=== PATIENT | female | born 1960 | race Caucasian/White ===

== ENCOUNTER 2025-01-21 18:49 | Emergency (ER) | payer OTHER, SELFPAY ==
--- NOTE | ~2025-01-21 | XR_ITS ---
XR shoulder LT min 2V Ordering provider: Maggie Stokes MD History: . FALL . Comparison: None. FINDINGS: BONES: Undisplaced Fracture of the proximal metaphysis of the left humerus. JOINT SPACES: The acromioclavicular joint shows slight osteoarthritic change. The glenohumeral joint is narrowed. SOFT TISSUES: Normal. IMPRESSION: Fracture of the proximal metaphysis of the left humerus. Reviewed, dictated and finalized at location A.
--- NOTE | ~2025-01-21 | XR_ITS ---
XR humerus LT Ordering provider: Maggie Stokes MD History: . FALL . Comparison: None. FINDINGS: BONES: Fracture of the proximal metaphysis of the left humerus with extension to the humeral head. JOINT SPACES: Severe narrowing of the glenohumeral joint space. SOFT TISSUES: Normal. IMPRESSION: Fracture of the proximal metaphysis of the left humerus with extension to the humeral head. Reviewed, dictated and finalized at location A. IMPRESSION: Fracture of the proximal metaphysis of the left humerus with extension to the h umeral head.
[2025-01-21 18:50] VITALS: BP 113/63; PULSE 89; RESP 16; TEMP 36.8; O2SAT 97
--- OUTSIDE RECORDS SUMMARY | 2025-01-21 18:51 | XMS_ITS | Referral Summary ---
Author Organization [place] [id number] Address [address] [place] [address] Care Team Providers Care Ash Pit Worker Name Role Phone Torrey Serna MD Primary Care Provider [phone] Encounters Date Type Department Care Team Description 12/28/2024 Results Follow-Up [facility] [address] [place] [address] Sharon Stewart NP Screening Mammogram Bilateral W Rico W Implants 12/27/2024 1:26 PM CDT - 12/27/2024 11:59 PM CDT Hospital Encounter [place] [facility] [facility] [address] [place] [phone] Encounter for osteoporosis screening in asymptomatic postmenopausal patient Discharge Disposition: Discharge to home or self care 12/27/2024 1:26 PM CDT - 12/27/2024 11:59 PM CDT Hospital Encounter [place] [facility] [address] [place] [address] [address] [place], [place] [phone] Encounter for screening mammogram for malignant neoplasm of breast Discharge Disposition: Discharge to home or self care 11/26/2024 Telephone [facility] G[facility]ology [address] [place] [address] 12[address] [place] [address] [place] [phone] Cathy Prather 11/24/2024 Telephone [facility] [address] [place] [address] Brisa Lehman RN 11/23/2024 Results Follow-Up [facility] [address] [place] [phone] Sharon Stewart NP Hepatitis C antibody Blood, Urinalysis reflex to microscopic and culture Urine, Thyroid Function [place], Additional followed-up results: 5 11/23/2024 10:05 AM CDT Lab [facility] [address] [place] [phone] Routine general medical examination at a health care facility; Need for hepatitis B screening test; Encounter for hepatitis C screening test for low risk patient; Anxiety 11/23/2024 8:30 AM CDT Office Visit [facility] [address] [place] [phone] Sharon Stewart NP Routine general medical examination at a health care facility (Primary Dx); Screening for lipid disorders; Colon cancer screening; Encounter for screening mammogram for malignant neoplasm of breast; Anxiety; Need for hepatitis B screening test; Encounter for hepatitis C screening test for low risk patient; Encounter for osteoporosis screening in asymptomatic postmenopausal patient from Last 3 Months Allergies No known active allergies Medications PARoxetine (PAXIL) 30 mg tablet Take 1 tablet (30 mg total) by mouth every morning 90 tablet 3 11/23/2024 6 Active Active Problems Problem Noted Date Diagnosed Date Colon cancer screening 11/23/2024 Posterior vitreous detachment of right eye 02/08 Assessment & Plan (03/23/2024 3:06 PM CDT): No retinal break/tear S/sx retinal detachment (RD) reviewed, rtc with any new fl/floaters Assessment & Plan (02/09/2024 9:42 AM CDT): Patient was educated on the signs/sx retinal detachment, including flashes, floaters, and/or curtain over the vision. Recommend patient RTC immediately with the onset of any of these symptoms. 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 Assessment & Plan (02/09/2024 9:47 AM CDT): Not v/s, monitor Arthralgia of shoulder 04/30/2012 Immunizations Immunization Administration Dates Next Due [facility] ([facility]) SARS-CoV-2 Vaccination 09/26/2020 Social History Tobacco Use Types Packs/Day Years Used Date Smoking Tobacco: Never Tobacco Cessation:Counseling Given: Not Answered Comments Unknown Sex and Gender Information Value Date Recorded Sex Assigned at Not on file Legal Sex 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 Gender Identity Not on file Sexual Orientation Not on file Last Filed Vital Signs Vital Sign Reading Time Taken Comments Blood Pressure 120/70 11/23/2024 8:23 AM CDT Pulse 77 11/23/2024 8:23 AM CDT Temperature 36.8 C (98.2 F) 01/22/2023 9:24 AM CDT Respiratory Rate 18 01/22/2023 9:24 AM CDT Oxygen Saturation 99% 11/23/2024 8:23 AM CDT Inhaled Oxygen Concentration - - Weight 59 kg (130 lb) 12/27/2024 1:46 PM CDT Height 160 cm (5' 3) 12/27/2024 1:46 PM CDT Body Mass Index 23.03 12/27/2024 1:46 PM CDT Plan of Treatment Scheduled Procedures Name Priority Associated Diagnoses Date/Ti me COLONOSCOPY Open Access Colon cancer screening Procedures Procedure Name Priority Date/Time Associated Diagnosis Comments DEXA AXIAL SKELETON BONE DENSITY 1 OR MORE SITES Schedule Routine, Read Routine (OP Routine) 12/27/2024 2:15 PM CDT Encounter for osteoporosis screening in asymptomatic postmenopausal patient SCREENING MAMMOGRAM BILATERAL W RICO W IMPLANTS Schedule Routine, Read Routine (OP Routine) 12/27/2024 2:01 PM CDT Encounter for screening mammogram for malignant neoplasm of breast EGFR Routine 11/23/2024 10:04 AM CDT Routine general medical examination at a health care facility Anxiety DIFFERENTIAL AUTO Routine 11/23/2024 10:04 AM CDT Routine general medical examination at a health care facility Anxiety CBC WITH AUTO DIFFERENTIAL Routine 11/23/2024 10:04 AM CDT Routine general medical examination at a health care facility Anxiety COMPREHENSIVE METABOLIC PANEL Routine 11/23/2024 10:04 AM CDT Routine general medical examination at a health care facility Anxiety THYROID FUNCTION CASCADE Routine 11/23/2024 10:04 AM CDT Routine general medical examination at a health care facility Anxiety URINALYSIS AND REFLEX TO MICROSCOPIC AND CULTURE Routine 11/23/2024 10:04 AM CDT Routine general medical examination at a health care facility Anxiety HEPATITIS C ANTIBODY Routine 11/23/2024 10:04 AM CDT Routine general medical examination at a health care facility Encounter for hepatitis C screening test for low risk patient POCT LIPID PANEL Routine 11/23/2024 8:32 AM CDT Screening for lipid disorders POCT GLUCOSE [id number] Routine 11/23/2024 8: 32 AM CDT Screening for lipid disorders COLONOSCOPY REPORT 08/19/2014 from Last 3 Months or Most Recently Relevant to Health Maintenance Results * Dexa Axial Skeleton Bone Density 1 or 2 Site (12/27/2024 2:15 PM CDT) Anatomical Region Laterality Modality Body N/A Digital Radiogra phy 12/27/2024 3:06 PM CDT Impressions 12/27/2024 4:09 PM CDT 1. The bone mineral density of the lumbar spine is mildly decreased. 2. The bone mineral density of the left femoral neck is moderately decreased. 3. The bone mineral density of the left total hip is mildly decreased. 4. Overall, the above findings are diagnostic of osteoporosis by WHO criteria. 5. Based on the FRAX fracture risk model, the 10-year probability for major osteoporotic fracture is 12% and that for hip fracture is 2.3%. This 10-year fracture risk estimate was calculated using the risk factors noted in the history above, along with the femoral neck bone density. FRAX is intended to help guide treatment decisions in men over age 50 and postmenopausal women with low bone mass (osteopenia). The National Osteoporosis Foundation (NOF) recommends that FDA-approved medical therapies be considered in postmenopausal women and men age 50 years and older with osteoporosis and those with low bone mass whose 10-year fracture probability by FRAX is >= 20% for major osteoporotic fracture or >= 3% for hip fracture. However, all treatment decisions require clinical judgment and consideration of individual patient factors, including patient preferences, comorbidities, previous drug use, risk factors not captured in the FRAX model (e.g., frailty, falls, vitamin D deficiency, increased bone turnover, interval significant decline in bone density) and possible under- or overestimation of fracture risk by FRAX. General comments regarding interpretation of bone density measurements: A) In children, premenopausal woman and males under age 50 not at increased risk for fractures only Z-scores, not T-scores are used to indicate risk. A Z-score above -2.0 is defined as within the expected range for age and Z-score at or less than -2.0 is below the expected range for age. A Z-score below the expected range for age in a patient with recent fractures and/or chronic corticosteroid treatment is consistent with a diagnosis of osteoporosis. B) In post menopausal women and males over 50, comparison of the measured bone mineral density with the average value in young normal subjects (the T-score) has been found to be useful in assessing fracture risk. Fracture risk approximately doubles for each 1.0 standard deviation (SD) in individual's hip or spine bone mineral density is below the average value of young normal subjects. The World Health Organization (WHO) has defined T-scores of -1.0 to -2.5 as diagnostic of low bone mass (OSTEOPENIA), and T-scores of -2.5 or lower to be diagnostic of OSTEOPOROSIS, based on the site of lowest bone density. Note that there will be a change in reporting format and reference databases as patients move from the younger population (group A) to the older population (group B) The National Osteoporosis Foundation (www.nof.org) recommends adequate intake of calcium and vitamin D and regular weight-bearing exercise in all patients. They recommend pharmacologic treatment in postmenopausal women and men age 50 and older presenting with any of the followin) Osteoporosis, after appropriate evaluation to exclude secondary causes. 2) A hip or vertebral (clinical or radiographic) fracture, regardless of the bone density. 3) Low bone mass (Osteopenia) and one or more of: other prior fractures, secondary causes associated with high risk of fracture (such as glucocorticoid use or total immobilization), or computed high risk of fracture (10-yr probability of hip fracture >= 3% or a 10-yr probability of any major osteoporosis-related fracture >= 20% based on the [place].-adapted WHO algorithm), available at http://www.shef.ac.uk/FRAX). Dictated by: Yue Corey MD, MPH The radiology attending physician has personally reviewed this study, and had reviewed and/or edited this written report and agrees with it. Electronically signed by: Wolfgang Peace M.D. Narrative 12/27/2024 4:09 PM CDT BONE DENSITOMETRY OF THE SPINE AND HIP DATE OF STUDY: 12/27/2024 HISTORY: 64-year-old postmenopausal woman with no relevant past medical history. She is being treated with no relevant medications. Evaluate bone mineral density. Additional risk factors for fracture: none. FINDINGS (SPINE): The bone mineral density of L1-L4 was assessed by dual-energy x-ray absorptiometry. The average bone mineral density within this region is 0.892 gm/sq-cm. This is 0.3 standard deviations above the mean of the average bone mineral density for age- and gender-matched subjects (the Z-score). It is 1.4 standard deviations below the mean peak bone mineral density in young adults (the T-score). FINDINGS (FEMORAL NECK): The bone mineral density of the left femoral neck was assessed by dual-energy x-ray absorptiometry. The average bone mineral density within the femoral neck region is 0.574 gm/sq-cm. This is 1.0 standard deviations below the mean of the average bone mineral density for age- and gender-matched subjects (the Z-score). It is 2.5 standard deviations below the mean peak bone mineral density in young adults (the T-score). FINDINGS (TOTAL HIP): The bone mineral density of the left hip was assessed by dual-energy x-ray absorptiometry. The average bone mineral density within the total hip region is 0.648 gm/sq-cm. This is 1.2 standard deviations below the mean of the average bone mineral density for age- and gender-matched subjects (the Z-score). It is 2.4 standard deviations below the mean peak bone mineral density in young adults (the T-score). SUMMARY OF CURRENT RESULTS: Region BMD T-score Z-score AP Spine (L1-L4) 0.892 -1.4 0.3 Femoral Neck (Left) 0.574 -2.5 -1.0 Total Hip (Left) 0.648 -2.4 -1.2 Procedure Note Wolfgang Peace MD - 12/27/2024 BONE DENSITOMETRY OF THE SPINE AND HIP DATE OF STUDY: 12/27/2024 HISTORY: 64-year-old postmenopausal woman with no relevant past medical history. She is being treated with no relevant medications. Evaluate bone mineral density. Additional risk factors for fracture: none. FINDINGS (SPINE): The bone mineral density of L1-L4 was assessed by dual-energy x-ray absorptiometry. The average bone mineral density within this region is 0.892 gm/sq-cm. This is 0.3 standard deviations above the mean of the average bone mineral density for age- and gender-matched subjects (the Z-score). It is 1.4 standard deviations below the mean peak bone mineral density in young adults (the T-score). FINDINGS (FEMORAL NECK): The bone mineral density of the left femoral neck was assessed by dual-energy x-ray absorptiometry. The average bone mineral density within the femoral neck region is 0.574 gm/sq-cm. This is 1.0 standard deviations below the mean of the average bone mineral density for age- and gender-matched subjects (the Z-score). It is 2.5 standard deviations below the mean peak bone mineral density in young adults (the T-score). FINDINGS (TOTAL HIP): The bone mineral density of the left hip was assessed by dual-energy x-ray absorptiometry. The average bone mineral density within the total hip region is 0.648 gm/sq-cm. This is 1.2 standard deviations below the mean of the average bone mineral density for age- and gender-matched subjects (the Z-score). It is 2.4 standard deviations below the mean peak bone mineral density in young adults (the T-score). SUMMARY OF CURRENT RESULTS: Region BMD T-score Z-score AP Spine (L1-L4) 0.892 -1.4 0.3 Femoral Neck (Left) 0.574 -2.5 -1.0 Total Hip (Left) 0.648 -2.4 -1.2 IMPRESSION: 1. The bone mineral density of the lumbar spine is mildly decreased. 2. The bone mineral density of the left femoral neck is moderately decreased. 3. The bone mineral density of the left total hip is mildly decreased. 4. Overall, the above findings are diagnostic of osteoporosis by WHO criteria. 5. Based on the FRAX fracture risk model, the 10-year probability for major osteoporotic fracture is 12% and that for hip fracture is 2.3%. This 10-year fracture risk estimate was calculated using the risk factors noted in the history above, along with the femoral neck bone density. FRAX is intended to help guide treatment decisions in men over age 50 and postmenopausal women with low bone mass (osteopenia). The National Osteoporosis Foundation (NOF) recommends that FDA-approved medical therapies be considered in postmenopausal women and men age 50 years and older with osteoporosis and those with low bone mass whose 10-year fracture probability by FRAX is >= 20% for major osteoporotic fracture or >= 3% for hip fracture. However, all treatment decisions require clinical judgment and consideration of individual patient factors, including patient preferences, comorbidities, previous drug use, risk factors not captured in the FRAX model (e.g., frailty, falls, vitamin D deficiency, increased bone turnover, interval significant decline in bone density) and possible under- or overestimation of fracture risk by FRAX. General comments regarding interpretation of bone density measurements: A) In children, premenopausal woman and males under age 50 not at increased risk for fractures only Z-scores, not T-scores are used to indicate risk. A Z-score above -2.0 is defined as within the expected range for age and Z-score at or less than -2.0 is below the expected range for age. A Z-score below the expected range for age in a patient with recent fractures and/or chronic corticosteroid treatment is consistent with a diagnosis of osteoporosis. B) In post menopausal women and males over 50, comparison of the measured bone mineral density with the average value in young normal subjects (the T-score) has been found to be useful in assessing fracture risk. Fracture risk approximately doubles for each 1.0 standard deviation (SD) in individual's hip or spine bone mineral density is below the average value of young normal subjects. The World Health Organization (WHO) has defined T-scores of -1.0 to -2.5 as diagnostic of low bone mass (OSTEOPENIA), and T-scores of -2.5 or lower to be diagnostic of OSTEOPOROSIS, based on the site of lowest bone density. Note that there will be a change in reporting format and reference databases as patients move from the younger population (group A) to the older population (group B) The National Osteoporosis Foundation (www.nof.org) recommends adequate intake of calcium and vitamin D and regular weight-bearing exercise in all patients. They recommend pharmacologic treatment in postmenopausal women and men age 50 and older presenting with any of the followin) Osteoporosis, after appropriate evaluation to exclude secondary causes. 2) A hip or vertebral (clinical or radiographic) fracture, regardless of the bone density. 3) Low bone mass (Osteopenia) and one or more of: other prior fractures, secondary causes associated with high risk of fracture (such as glucocorticoid use or total immobilization), or computed high risk of fracture (10-yr probability of hip fracture >= 3% or a 10-yr probability of any major osteoporosis-related fracture >= 20% based on the [place].-adapted WHO algorithm), available at http://www.shef.ac.uk/FRAX). Dictated by: Yue Corey MD, MPH The radiology attending physician has personally reviewed this study, and had reviewed and/or edited this written report and agrees with it. Electronically signed by: Wolfgang Peace M.D. Sharon Stewart NP IMG DXA PROCEDURES Final Resu lt * Screening Mammogram Bilateral W Rico W Implants (12/27/2024 2:01 PM CDT) Anatomical Region Laterality Modality Breast Bilateral Mammography Impressions 12/28/2024 8:04 AM CDT Bilateral No evidence of malignancy in either breast. OVERALL BI-RADS FINAL ASSESSMENT: 1 - Negative RECOMMENDATION: Recommend bilateral annual screening mammography. Narrative 12/28/2024 8:04 AM CDT EXAMINATION: Screening Mammogram Bilateral W Rico W Implants: 12/27/2024 COMPARISON: Relevant prior studies available at the time of interpretation were reviewed. TECHNIQUE: Mammography was performed with 2D and digital breast tomosynthesis (DBT) images. CAD was utilized. BREAST PARENCHYMAL COMPOSITION: There are scattered areas of fibroglandular density. FINDINGS: Bilateral There is no suspicious mass, calcification, or architectural distortion in either breast. Bilateral subpectoral silicone implants. Sharon Stewart FISHING HAND IMG MAMMO PROCEDURES Final Re sult * eGFR (11/23/2024 10:04 AM CDT) Pathologist [facility] eGFR >90 >=60 mL/min/1. 73 m2 Comment: Interpretive Data Reference Interval Normal >/= 90 mL/min/1.73m2 Mildly decreased* 60 - 89 mL/min/1.73m2 Mildly to moderately decreased 45 - 59 mL/min/1.73m2 Moderately to severely decreased 30 - 44 mL/min/1.73m2 Severely decreased 15 - 29 mL/min/1.73m2 Kidney Failure < 15 mL/min/1.73m2 *Relative to young adult level Estimated glomerular filtration rate is determined by the 2020 CKD-EPI equation recommended by the National Kidney Foundation (A Unifying Approach to GFR Estimation: Recommendations of the NKF-ASK Task Force on Reassessing the Inclusion of Race in Diagnosing Kidney Disease, JASN 2020). The CKD-EPI equation should not be used for patients with unstable renal function and has not been validated in children and those over 70. Current interpretive data was last reviewed 2021. Blood 11/23/2024 10:0 4 AM CDT 11/23/2024 10:43 AM CDT Sharon Stewart FISHING HAND LAB BLOOD ORDERABLES Final Re sult [facility] Department [place] [address] * Differential, auto (11/23/2024 10:04 AM CDT) Pathologist [facility] [place] Neutrophil abs 4.46 1.50 - 6.50 K/cumm Imm gran abs 0.02 0.00 - 0.10 K/cumm [facility] Lymphocyte abs 1.45 0.80 - 3.30 K/cumm [facility] Monocyte abs 0.41 0.20 - 0.80 K/cumm [facility] Eosinophil abs 0.17 0.00 - 0.50 K/cumm [facility] Basophil abs 0.07 0.00 - 0.10 K/cumm [facility] Neutrophil pct 67.8 % [facility] Comment: Interpretive Data Percent cell count reference ranges are not reported, since discordance with absolute values may lead to misinterpretation of CBC data. Current Interpretive Data was last revised on 2017. Imm gran pct 0.3 % [facility] Comment: Interpretive Data Percent cell count reference ranges are not reported, since discordance with absolute values may lead to misinterpretation of CBC data. Current Interpretive Data was last revised on 2017. Lymphocyte pct 22.0 % [facility] Comment: Interpretive Data Percent cell count reference ranges are not reported, since discordance with absolute values may lead to misinterpretation of CBC data. Current Interpretive Data was last revised on 2017. Monocyte pct 6.2 % [facility] Comment: Interpretive Data Percent cell count reference ranges are not reported, since discordance with absolute values may lead to misinterpretation of CBC data. Current Interpretive Data was last revised on 2017. Eosinophil pct 2.6 % [facility] Comment: Interpretive Data Percent cell count reference ranges are not reported, since discordance with absolute values may lead to misinterpretation of CBC data. Current Interpretive Data was last revised on 2017. Basophil pct 1.1 % [facility] Comment: Interpretive Data Percent cell count reference ranges are not reported, since discordance with absolute values may lead to misinterpretation of CBC data. Current Interpretive Data was last revised on 2017. Blood 11/23/2024 10:0 4 AM CDT 11/23/2024 10:37 AM CDT us Sharon Stewart FISHING [facility] LAB BLOOD ORDERABLES Final Re sult [facility] Department of Laboratories [place], [place] [id number] * Thyroid Function [place] (11/23/2024 10:04 AM CDT) TSH 1.97 0.30 - 4.20 mcIUnit/mL Blood 11/23/2024 10:0 4 AM CDT 11/23/2024 10:37 AM CDT us Sharon Stewart NP LAB BLOOD ORDERABLES Final Re sult Performing Organization Address City/[facility]/ZIP Co de Phone Number [facility] Department [place] [address] * Urinalysis reflex to microscopic and culture Urine (11/23/2024 10:04 AM CDT) Color, ur Yellow Yellow Clarity, ur Clear Clear [facility] Specific gravity, ur 1.024 1.003 - 1.030 [facility] pH, urine 6.0 [facility] Comment: Interpretive Data U rine pH is affected by diet, medications, systemic acid-base disturbances, and renal tubular function. pH may affect urinary stone formation. For example, urine pH below 6.0 may help reduce the tendency for calcium phosphate stones and pH greater than 6.0 may reduce the tendency for uric acid stone formation. Source: [facility] Current Interpretive Data was last revised on 2017 Protein, ur ql Trace Negative [facility] Glucose, ur ql Negative Negative [facility] Ketones, ur Negative Negative [facility] Bilirubin, ur Negative Negative [facility] Blood, ur Negative Negative [facility] Urobilinogen, ur <2.0 <2.0 mg/dL [facility] Nitrite, ur Negative Negative [facility] Leukocyte esterase, ur Negative Negative [facility] UA reflex comment Reflex conditions for microscopic UA and culture not met. [facility] Urine 11/23/2024 10:0 4 AM CDT 11/23/2024 10:37 AM CDT us Sharon Stewart NP LAB MICROBIOLOGY - GENERAL OR DERABLES Final Result [facility] Department [place] [address] * CBC with auto differential (11/23/2024 10:04 AM CDT) WBC 6.58 3.80 - 9.90 K/cumm Hgb 14.8 11.9 - 15.5 g/dL [facility] Hct 43.7 35.6 - 45.5 % [facility] Plt 375 150 - 400 K/cumm [facility] MPV 11.0 9.1 - 12.3 fL [facility] RBC 4.61 3.90 - 5.20 M/cumm [facility] MCV 94.8 81.3 - 96.4 fL [facility] MCH 32.1 27.1 - 33.3 pg [facility] MCHC 33.9 32.3 - 35.7 g/dL [facility] RDW CV 13.8 11.1 - 14.9 % [facility] RDW SD 47.6 35.7 - 48.1 fL [facility] NRBC abs 0.00 0.00 - 0.01 K/cumm [facility] Blood 11/23/2024 10:0 4 AM CDT 11/23/2024 10:37 AM CDT us Sharon Stewart FISHING HAND LAB BLOOD ORDERABLES Final Re sult Performing Organization Address City/[facility]/ZIP Co de Phone Number [facility] Department [place] [employer] [place] [address] * Hepatitis C antibody Blood (11/23/2024 10:04 AM CDT) [facility] Hep C Ab Nonreactive Nonreactive Comment:Antibodies to HCV no t detected. Does NOT exclude the possibility of recent exposure to HCV. Current interpretive data was last revised on 22 Blood 11/23/2024 10:0 4 AM CDT 11/23/2024 10:37 AM CDT us Sharon Stewart FISHING HAND LAB MICROBIOLOGY - GENERAL OR DERABLES Final Result [facility] [place] [employer] [place] [address] * (ABNORMAL) Comprehensive metabolic panel (11/23/2024 10:04 AM CDT) Sodium 145 135 - 145 mmol/L Potassium, pl 4.0 3.3 - 4.9 mmol/L [facility] Chloride 106 97 - 110 mmol/L [facility] CO2 28 22 - 32 mmol/L [facility] Anion gap 11 2 - 15 mmol/L [facility] BUN 10 6 - 25 mg/dL [facility] Creatinine 0.71 0.60 - 1.10 mg/dL [facility] Glucose 85 70 - 199 mg/dL [facility] Comment: Interpretive Data Fasting glucose >/= 126 mg/dl is diagnostic for diabetes. Fasting is defined as no caloric intake for at least 8 hours. Fasting glucose between 100 mg/dl to 125 mg/dl is diagnostic of prediabetes. In a patient with classic symptoms of hyperglycemia or hyperglycemic crisis, a random glucose >/= 200 mg/dl is diagnostic for diabetes. In the absence of unequivocal hyperglycemia, results should be confirmed by repeat testing. The classification and Diagnosis of Diabetes Diabetes Care 2021; 46: S19-S40. Current interpretive data was last revised 2022. Calcium 10.0 8.5 - 10.3 mg/dL [facility] Bilirubin, total 0.5 0.1 - 1.2 mg/dL [facility] Protein, pl 7.7 6.5 - 8.5 g/dL [facility] Albumin 4.6 3.5 - 5.0 g/dL [facility] Alk phos 82 40 - 130 Units/L [facility] ALT 55(H) 7 - 45 Units/L [facility] AST 64(H) 10 - 45 Units/L [facility] Blood 11/23/2024 10:0 4 AM CDT 11/23/2024 10:37 AM CDT us Sharon Stewart NP LAB BLOOD ORDERABLES Final Re sult [facility] Department [place] [address] * POCT glucose (11/23/2024 8:32 AM CDT) Glucose Blood, POC 93 Normal Fasting 70 - 100, Random <200 mg/dL Blood 11/23/2024 8:32 AM CDT Sharon Stewart FISHING HAND POINT OF CARE TEST ORDERABLES Final Result * POCT lipid panel (11/23/2024 8:32 AM CDT) Cholesterol, POC 240 <200 MG/DL HDL, POC 100 >=40 mg/dL Triglycerides, POC 45 <=149 mg/dL Capillary blood 11/23/2024 8 :32 AM CDT Sharon Stewart FISHING HAND POINT OF CARE TEST ORDERABLES Final Result * COLONOSCOPY REPORT (08/19/2014) Anatomical Region Laterality Modality Other Narrative 08/19/2014 Ordered by an unspecified provider. Historical Provider GI PROCEDURE ORDERABLES F inal Result from Last 3 Months or Most Recently Relevant to Health Maintenance Insurance 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
--- OUTSIDE RECORDS SUMMARY | 2025-01-21 18:51 | XMS_ITS | Clinical Summary ---
Author Organization [facility] [employer] Address [address] [address] Care Team Providers Care Bill Of Materials Clerk Name Role Phone Unavailable Primary Care Provider Unavailabl e Source Comments [facility] [employer],non-owned Affiliates and Associated Physician Practices is amultiple site organization consisting of ambulatory clinics and hospital sitesin [place], [place], [place] and [place]. This disclosure is being madepursuant to the Care Everywhere program and may not contain all information available regarding this patient. Last updated 18.[facility] [employer] Allergies No known active allergies Medications * Be aware that medications may not be up to date on this document. Alwaysverify current medications with the patient. Sertraline HCl (ZOLOFT PO) Active Social History Tobacco Use Types Packs/Day Years Used Date Smoking Tobacco: Never Smokeless Tobacco: Never Comments No Sex and Gender Information Value Date Recorded Sex Assigned at Not on file Legal Sex Female 12:50 PM CDT Gender Identity Not on file Sexual Orientation Not on file Last Filed Vital Signs Vital Sign Reading Time Taken Comments Blood Pressure 132/74 11/05/2016 4:36 PM CDT Pulse 112 11/05/2016 4:36 PM CDT Temperature 39.5 C (103.1 F) 11/05/2016 4:36 PM CDT Respiratory Rate 18 11/05/2016 4:36 PM CDT Oxygen Saturation 97% 11/05/2016 4:36 PM CDT Inhaled Oxygen Concentration - - Weight 65.8 kg (145 lb) 11/05/2016 4:36 PM CDT Height 160 cm (5' 3) 11/05/2016 4:36 PM CDT Body Mass Index 25.69 11/05/2016 4:36 PM CDT Plan of Treatment Health Maintenance Due Date Last Done Comments COLOGUARD (AGES 45-75) - COL ON CA SCREENING 1960 COLON MONITORING 1960 COLONOSCOPY - COLON CA SCREENING 1960 CT COLONOGRAPHY - COLON CA SCREENING 1960 Colorectal Cancer Screening 1960 FIT - COLON CA SCREENING 1960 FLEX SIG - COLON CA SCREENING 1960 LIPID TESTING 1960 MAMMOGRAM 1960 HIV SCREENING 12/23/1975 HEPATITIS C SCREENING 12/18/1978 DTAP/TDAP/TD VACCINES (1 - Tdap) 12/23/1979 PNEUMOCOCCAL VACCINE 50+ (1 of 1 - PCV) 2010 ZOSTER VACCINE (1 of 2) 2010 COVID-19 VACCINE (1 - 2023-2 5 season) 2024 DEPRESSION SCREENING 07/21/2024 INFLUENZA VACCINE (Season Ended) 2025 Respiratory Syncytial Virus (RSV) Vaccine Pt: or over 60 yrs (1 - 1-dose 75+ series) 12/23/2035 HEPATITIS B VACCINE Aged Out No longe r eligible based on patient's age to complete this topic HIB VACCINE Aged Out No longer eligi ble based on patient's age to complete this topic HPV VACCINE Aged Out No longer eligi ble based on patient's age to complete this topic MENINGOCOCCAL (Group B) VACC INE SHARED DECISION-MAKING Aged Out No longer eligibl e based on patient's age to complete this topic MENINGOCOCCAL GROUPS A/C/Y/W VACCINE Aged Out No longer eligible b ased on patient's age to complete this topic Insurance [employer]
--- OUTSIDE RECORDS SUMMARY | 2025-01-21 18:51 | XMS_ITS | Clinical Summary ---
Author Organization [place] [id number] [facility] Address [address] [place] [address] Care Team Providers Care Ultrasonic Solderer Name Role Phone Torrey Serna MD Primary Care Provider [phone] Allergies No known active allergies Medications PARoxetine (PAXIL) 30 mg tablet Take 1 tablet (30 mg total) by mouth every morning 90 tablet 3 11/23/2024 Active Active Problems Problem Noted Date Diagnosed [...] CDT): Not v/s, follow up with local mold stacker Assessment & Plan (02/09/2024 9:47 AM CDT): Not v/s, monitor Arthralgia of shoulder 04/30/2012 Encounters Date Type Department Care Team Description 12/28/2024 Results Follow-Up [facility] [address] [place] [address] Sharon Stewart NP Screening Mammogram Bilateral W Rico W Implants 12/27/2024 1:26 PM CDT - 12/27/2024 11:59 PM CDT Hospital Encounter [place] [address] [facility] [address] [place] [address] [address] [place] [address] Encounter for osteoporosis screening in asymptomatic postmenopausal patient Discharge Disposition: Discharge to home or self care 12/27/2024 1:26 PM CDT - 12/27/2024 11:59 PM CDT Hospital Encounter [address] [facility] [address] [place] [address] [address] [place] [address] Encounter for screening mammogram for malignant neoplasm of breast Discharge Disposition: Discharge to home or self care 11/26/2024 Telephone [facility] [address] [place] [address] [facility] [place] [address] [place] [address] [place] [phone] Cathy Prather 11/24/2024 Telephone [facility] [address] [place] [address] Brisa Lehman RN 11/23/2024 10:05 AM CDT Lab [facility] [address] [place] [phone] Routine general medical examination at a health care facility; Need for hepatitis B screening test; Encounter for hepatitis C screening test for low risk patient; Anxiety 11/23/2024 8:30 AM CDT Office Visit [facility] [address] [place] [address] [address] [facility] [place] [address] Sharon Stewart NP Routine general medical examination at a health care facility (Primary Dx); Screening for lipid disorders; Colon cancer screening; Encounter for screening mammogram for malignant neoplasm of breast; Anxiety; Need for hepatitis B screening test; Encounter for hepatitis C screening test for low risk patient; Encounter for osteoporosis screening in asymptomatic postmenopausal patient 11/23/2024 Results Follow-Up [facility] [address] [place] [phone] Sharon Stewart NP Hepatitis C antibody Blood, Urinalysis reflex to microscopic and culture Urine, Thyroid Function [place], Additional followed-up results: 5 from Last 3 Months Immunizations Immunization Administration Dates Next Due Constant Insight (J&J) SARS-CoV-2 Vaccination 09/26/2020 Surgical History Surgery Date Site/Laterality Comments RECTAL SURGERY AUGMENTATION MAMMAPLASTY 07/21/2014 - 07/20/2015 Bilater al Medical History Medical History Date Comments Depression Family History Medical History Relation Name Comments Cancer Father Prostate cancer Father Hypertension Mother Diabetes Sister Hyperlipidemia Sister Hypertension Sister Breast cancer Neg Hx Endometrial cancer Neg Hx Ovarian cancer Neg Hx Thyroid cancer Neg Hx Relation Name Status Comments Father Mother Sister Social History Tobacco Use Types Packs/Day Years Used Date Smoking Tobacco: Never Tobacco Cessation:Counseling Given: Not Answered Comments Unknown Sex and Gender Information Value Date Recorded Sex Assigned at Not on file Legal Sex Female 7:57 PM 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 Gender Identity Not on file Sexual Orientation Not on file Obstetrics History Para Term AB IAB SAB Ectopic Multiple Livin g Live Births 1 1 1 Date Outcome GA Total Labor Labor/2nd/3rd Weight Sex Type Anes PTL Tisha A1 A5 Name Clin Term Last Filed Vital Signs Vital Sign Reading [...] me COLONOSCOPY Open Access Colon cancer screening Health Maintenance Due Date Last Done Comments Cervical Cancer Screening 1960 Depression Screening 1960 DTaP/Tdap/Td Vaccine (1 - Tdap) 12/23/1971 Hepatitis B Screening 1978 Zoster Vaccine (1 of 2) 2010 Covid-19 Vaccine (2 - season) 2024 09/26/2020 Colon Cancer Screening-Colonoscopy 08/19/2024 08/19/2014 Influenza Vaccine (#1) 2025 Regular Well Visit/Exam 18-64 11/23/2025 11/23/2024, 09/10/2023, 09/10/2022 Breast Cancer Screening-Mammogram 12/27/2025 12/27/2024, 10/15/2023, 12/07/2020, Additional history exists Colon Cancer Screening-CT Colonography Discontinued 08/19/2014 Colon Cancer Screening-DNA Stool Discontinued 08/19/2014 Colon Cancer Screening-FIT Discontinued 08/19/2014 Colon Cancer Screening-Sigmoidoscopy Discontinued 08/19/2014 Hepatitis C Screening Completed 11/23/2024 Pneumococcal vaccine <65 Aged Out No longer eligible based on patient's age to complete this topic Procedures Procedure Name Priority Date/Time Associated Diagnosis [...] CDT Screening for lipid disorders POCT GLUCOSE 93640 Routine 11/23/2024 8: 32 AM CDT Screening [...] Resu lt * Screening Mammogram Bilateral W Rcio W Implants (12/27/2024 2:01 PM CDT) Anatomical [...] breast. Bilateral subpectoral silicone implants. Sharon Stewart NP IM MAMMO PROCEDURES Final Re sult * eGFR (11/23/2024 10:04 AM CDT) eGFR >90 >=60 mL/min/1. 73 m2 Comment: [...] 4 AM CDT 11/23/2024 10:43 AM CDT us Sharon Stewart STAFF SUBMARINE W[employer] OFFICER LAB BLOOD ORDERABLES Final Re sult [facility] [place] [address] * Differential, auto (11/23/2024 10:04 AM CDT) Neutrophil abs 4.46 1.50 - 6.50 K/cumm Imm gran abs 0.02 0.00 - 0.10 K/cumm [facility] Lymphocyte abs 1.45 0.80 - 3.30 K/cumm [facility] Monocyte abs 0.41 0.20 - 0.80 K/cumm [facility] Eosinophil abs 0.17 0.00 - 0.50 K/cumm [facility] Basophil abs 0.07 0.00 - 0.10 K/cumm [facility] Neutrophil pct 67.8 % [facility] Comment: Interpretive Data Percent cell count reference ranges are not reported, since discordance with absolute values may lead to misinterpretation of CBC data. Current Interpretive Data was last revised on 2017. Imm gran pct 0.3 % [facility] Comment: Interpretive Data Percent cell count reference ranges are not reported, since discordance with absolute values may lead to misinterpretation of CBC data. Current Interpretive Data was last revised on 2017. Lymphocyte pct 22.0 % [facility] Comment: Interpretive Data Percent cell count reference ranges are not reported, since discordance with absolute values may lead to misinterpretation of CBC data. Current Interpretive Data was last revised on 2017. Monocyte pct 6.2 % [facility] Comment: Interpretive Data Percent cell count reference ranges are not reported, since discordance with absolute values may lead to misinterpretation of CBC data. Current Interpretive Data was last revised on 2017. Eosinophil pct 2.6 % [facility] Comment: Interpretive Data Percent cell count reference ranges are not reported, since discordance with absolute values may lead to misinterpretation of CBC data. Current Interpretive Data was last revised on 2017. Basophil pct 1.1 % [facility] Comment: Interpretive Data Percent cell count reference ranges are not reported, since discordance with absolute values may lead to misinterpretation of CBC data. Current Interpretive Data was last revised on 2017. Blood 11/23/2024 10:0 4 AM CDT 11/23/2024 10:37 AM CDT Sharon Stewart STAFF SUBMARINE WARFARE OFFICER LAB BLOOD ORDERABLES Final Re sult Performing Organization Address City/[facility]/ZIP Co de Phone Number [facility] [place] [address] * Thyroid Function [place] (11/23/2024 10:04 AM CDT) TSH 1.97 0.30 - 4.20 mcIUnit/mL Blood 11/23/2024 10:0 4 AM CDT 11/23/2024 10:37 AM CDT Sharon Stewart STAFF SUBMARINE WARF[employer] OFFICER LAB BLOOD ORDERABLES Final Re sult Performing Organization Address [facility] Co de Phone Number [facility] [place] [address] * Urinalysis reflex to microscopic and culture Urine (11/23/2024 10:04 AM CDT) Color, ur Yellow Yellow Clarity, ur Clear Clear [facility] Specific gravity, ur 1.024 1.003 - 1.030 [facility] pH, urine 6.0 [facility] Comment: Interpretive Data U rine pH is affected by diet, medications, systemic acid-base disturbances, and renal tubular function. pH may affect urinary stone formation. For example, urine pH below 6.0 may help reduce the tendency for calcium phosphate stones and pH greater than 6.0 may reduce the tendency for uric acid stone formation. Source: [facility] Current Interpretive Data was last revised on 2017 Protein, ur ql Trace Negative [facility] Glucose, ur ql Negative Negative [facility] Ketones, ur Negative Negative [facility] Bilirubin, ur Negative Negative [facility] Blood, ur Negative Negative [facility] Urobilinogen, ur <2.0 <2.0 mg/dL [facility] Nitrite, ur Negative Negative [facility] Leukocyte esterase, ur Negative Negative [facility] UA reflex comment Reflex conditions for microscopic UA and culture not met. [facility] Urine 11/23/2024 10:0 4 AM CDT 11/23/2024 10:37 AM CDT us Sharon Stewart NP LAB MICROBIOLOGY - GENERAL OR DERABLES Final Result [facility] [place] [address] * CBC with auto differential (11/23/2024 10:04 AM CDT) Pathologist [facility] WBC 6.58 3.80 - 9.90 K/cumm Hgb 14.8 11.9 - 15.5 g/dL [facility] Hct 43.7 35.6 - 45.5 % [facility] Plt 375 150 - 400 K/cumm [facility] MPV 11.0 9.1 - 12.3 fL [facility] RBC 4.61 3.90 - 5.20 M/cumm [facility] MCV 94.8 81.3 - 96.4 fL [facility] MCH 32.1 27.1 - 33.3 pg [facility] MCHC 33.9 32.3 - 35.7 g/dL [facility] RDW CV 13.8 11.1 - 14.9 % [facility] RDW SD 47.6 35.7 - 48.1 fL [facility] NRBC abs 0.00 0.00 - 0.01 K/cumm [facility] Blood 11/23/2024 10:0 4 AM CDT 11/23/2024 10:37 AM CDT Sharon Stewart STAFF SUBMARINE WARF[employer] OFFICER LAB BLOOD ORDERABLES Final Re sult Performing Organization Address City/[facility]/ZIP Co de Phone Number [facility] [place] [place] [address] * Hepatitis C antibody Blood (11/23/2024 10:04 AM CDT) [facility] Hep C Ab Nonreactive Nonreactive Comment:Antibodies to HCV no t detected. Does NOT exclude the possibility of recent exposure to HCV. Current interpretive data was last revised on 22 Blood 11/23/2024 10:0 4 AM CDT 11/23/2024 10:37 AM CDT us Sharon Stewart STAFF SUBMARINE WARFARE OFFICER LAB MICROBIOLOGY - GENERAL OR DERABLES Final Result Performing Organization Address City/[facility] Co de Phone Number [facility] [place] [place] [address] * (ABNORMAL) Comprehensive metabolic panel (11/23/2024 10:04 AM CDT) [facility] Sodium 145 135 - 145 mmol/L Potassium, pl 4.0 3.3 - 4.9 mmol/L [facility] Chloride 106 97 - 110 mmol/L [facility] CO2 28 22 - 32 mmol/L [facility] Anion gap 11 2 - 15 mmol/L [facility] BUN 10 6 - 25 mg/dL [facility] Creatinine 0.71 0.60 - 1.10 mg/dL [facility] Glucose 85 70 - 199 mg/dL [facility] Comment: Interpretive Data Fasting glucose >/= 126 [...] 2022. Calcium 10.0 8.5 - 10.3 mg/dL [facility] Bilirubin, total 0.5 0.1 - 1.2 mg/dL [facility] Protein, pl 7.7 6.5 - 8.5 g/dL [facility] Albumin 4.6 3.5 - 5.0 g/dL [facility] Alk phos 82 40 - 130 Units/L [facility] ALT 55(H) 7 - 45 Units/L [facility] AST 64(H) 10 - 45 Units/L [facility] Blood 11/23/2024 10:0 4 AM CDT 11/23/2024 10:37 AM CDT Sharon Stewart NP LAB BLOOD ORDERABLES Final Re sult [facility] [place] [address] * POCT glucose (11/23/2024 8:32 AM CDT) Glucose Blood, POC 93 Normal Fasting 70 - 100, Random <200 mg/dL Blood 11/23/2024 8:32 AM CDT Sharon Stewart STAFF SUBMAR[employer] WARFARE OFFICER POINT OF CARE TEST ORDERABLES Final Result * POCT lipid panel (11/23/2024 8:32 AM CDT) Cholesterol, POC 240 <200 MG/DL HDL, POC 100 >=40 mg/dL Triglycerides, POC 45 <=149 mg/dL Capillary blood 11/23/2024 8 :32 AM CDT Sharon Stewart NP POINT OF CARE TEST ORDERABLES Final Result * COLONOSCOPY REPORT (08/19/2014) Anatomical Region Laterality Modality Other Narrative 08/19/2014 Ordered by an unspecified provider. Historical Provider GI PROCEDURE ORDERABLES F inal Result from Last 3 Months or Most Recently Relevant to Health Maintenance Insurance [facility]PPO Address: [address] [address] [facility]PPO Address: [address] [place] [address] [facility]/PPO Address: [address] [place] [address] [facility] H[facility]/PPO Address: [address] [place] [address] Advance Directives For more information, please contact: [phone] Documents on File Type Date Recorded 

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
--- OUTSIDE RECORDS SUMMARY | 2025-01-21 19:34 | XMS_ITS | Referral Summary ---
Author Organization [place] [id number] Address [address] [place] [address] Care Team Providers Care Precinct I Police Sergeant Name Role Phone Torrey Serna MD Primary Care Provider [phone] Encounters Date Type Department Care Team Description 12/28/2024 Results Follow-Up [facility] [address] [facility] [address] [place] [address] Sharon Stewart NP Screening Mammogram Bilateral W Rico W Implants 12/27/2024 1:26 PM CDT - 12/27/2024 11:59 PM CDT Hospital Encounter [place] [address] [facility] [address] [place] [phone] Encounter for osteoporosis screening in asymptomatic postmenopausal patient Discharge Disposition: Discharge to home or self care 12/27/2024 1:26 PM CDT - 12/27/2024 11:59 PM CDT Hospital Encounter [place] [address] [facility] [address] [place] [address] [address] [place], [place] [phone] Encounter for screening mammogram for malignant neoplasm of breast Discharge Disposition: Discharge to home or self care 11/26/2024 Telephone [facility] [address] [place] [address] 12th [place] [address] [place] [phone] Cathy Prather 11/24/2024 Telephone [facility] [address] [place] [address] Brisa Lehman RN 11/23/2024 Results Follow-Up [facility] [address] [facility] [address] [place] [phone] Sharon Stewart NP Hepatitis C antibody Blood, Urinalysis reflex to microscopic and culture Urine, Thyroid Function [facility], Additional followed-up results: 5 11/23/2024 10:05 AM CDT Lab [facility] [address] [place] [phone] Routine general medical examination at a health care facility; Need for hepatitis B screening test; Encounter for hepatitis C screening test for low risk patient; Anxiety 11/23/2024 8:30 AM CDT Office Visit [facility] [address] [facility] [facility] [address] [place] [phone] Sharon Stewart NP Routine general medical examination [...] CDT): Not v/s, 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 Bilateral subpectoral silicone implants. Sharon Stewart TAX EXAMINER IMG MAMMO PROCEDURES Final Re sult * eGFR (11/23/2024 10:04 AM CDT) Pathologist [facility] eGFR >90 >=60 mL/min/1. 73 m2 Comment: [...] CDT 11/23/2024 10:43 AM CDT Sharon Stewart TAX EXAMINER LAB BLOOD ORDERABLES Final Re sult [facility] [place] [address] * Differential, auto (11/23/2024 10:04 AM CDT) Pathologist [facility] Neutrophil abs 4.46 1.50 - 6.50 K/cumm Imm gran abs 0.02 0.00 - 0.10 K/cumm [facility] Lymphocyte abs 1.45 0.80 - 3.30 K/cumm [facility] Monocyte abs 0.41 0.20 - 0.80 K/cumm [facility] Eosinophil abs 0.17 0.00 - 0.50 K/cumm [facility] Basophil abs 0.07 0.00 - 0.10 K/cumm [facility] Neutrophil pct 67.8 % [facility] Comment: Interpretive Data Percent cell count reference ranges are not reported, since discordance with absolute values may lead to misinterpretation of CBC data. Current Interpretive Data was last revised on 2017. Imm gran pct 0.3 % [facility] Comment: Interpretive Data Percent cell count reference ranges are not reported, since discordance with absolute values may lead to misinterpretation of CBC data. Current Interpretive Data was last revised on 2017. Lymphocyte pct 22.0 % [facility] Comment: Interpretive Data Percent cell count reference ranges are not reported, since discordance with absolute values may lead to misinterpretation of CBC data. Current Interpretive Data was last revised on 2017. Monocyte pct 6.2 % [facility] Comment: Interpretive Data Percent cell count reference ranges are not reported, since discordance with absolute values may lead to misinterpretation of CBC data. Current Interpretive Data was last revised on 2017. Eosinophil pct 2.6 % [facility] Comment: Interpretive Data Percent cell count reference ranges are not reported, since discordance with absolute values may lead to misinterpretation of CBC data. Current Interpretive Data was last revised on 2017. Basophil pct 1.1 % [facility] Comment: Interpretive Data Percent cell count reference ranges are not reported, since discordance with absolute values may lead to misinterpretation of CBC data. Current Interpretive Data was last revised on 2017. Blood 11/23/2024 10:0 4 AM CDT 11/23/2024 10:37 AM CDT us Sharon Stewart TAX EXAMINER LAB BLOOD ORDERABLES Final Re sult [facility] Department of Laboratories [place], [place] [id number] * Thyroid Function [facility] (11/23/2024 10:04 AM CDT) TSH 1.97 0.30 - 4.20 mcIUnit/mL Blood 11/23/2024 10:0 4 AM CDT 11/23/2024 10:37 AM CDT us Sharon Stewart NP LAB BLOOD ORDERABLES Final Re sult Performing Organization Address City/[facility]/ZIP Co de Phone Number [facility] Department [place] [address] * Urinalysis reflex to microscopic and culture Urine (11/23/2024 10:04 AM CDT) Color, ur Yellow Yellow Clarity, ur Clear Clear [facility] Specific gravity, ur 1.024 1.003 - 1.030 [facility] pH, urine 6.0 [facility] Comment: Interpretive Data U rine pH is affected by diet, medications, systemic acid-base disturbances, and renal tubular function. pH may affect urinary stone formation. For example, urine pH below 6.0 may help reduce the tendency for calcium phosphate stones and pH greater than 6.0 may reduce the tendency for uric acid stone formation. Source: [facility] Current Interpretive Data was last revised on 2017 Protein, ur ql Trace Negative [facility] Glucose, ur ql Negative Negative [facility] Ketones, ur Negative Negative [facility] Bilirubin, ur Negative Negative [facility] Blood, ur Negative Negative [facility] Urobilinogen, ur <2.0 <2.0 mg/dL [facility] Nitrite, ur Negative Negative [facility] Leukocyte esterase, ur Negative Negative [facility] UA reflex comment Reflex conditions for microscopic UA and culture not met. [facility] Urine 11/23/2024 10:0 4 AM CDT 11/23/2024 10:37 AM CDT us Sharon Stewart NP LAB MICROBIOLOGY - GENERAL OR DERABLES Final Result [facility] Department [place] [address] * CBC with auto differential (11/23/2024 10:04 AM CDT) WBC 6.58 3.80 - 9.90 K/cumm Hgb 14.8 11.9 - 15.5 g/dL [facility] Hct 43.7 35.6 - 45.5 % [facility] Plt 375 150 - 400 K/cumm [facility] MPV 11.0 9.1 - 12.3 fL [facility] RBC 4.61 3.90 - 5.20 M/cumm [facility] MCV 94.8 81.3 - 96.4 fL [facility] MCH 32.1 27.1 - 33.3 pg [facility] MCHC 33.9 32.3 - 35.7 g/dL [facility] RDW CV 13.8 11.1 - 14.9 % [facility] RDW SD 47.6 35.7 - 48.1 fL [facility] NRBC abs 0.00 0.00 - 0.01 K/cumm [facility] Blood 11/23/2024 10:0 4 AM CDT 11/23/2024 10:37 AM CDT us Sharon Stewart TAX EXAMINER LAB BLOOD ORDERABLES Final Re sult Performing Organization Address City/[facility]/ZIP Co de Phone Number [facility] [place] [address] * Hepatitis C antibody Blood (11/23/2024 10:04 AM CDT) [facility] Hep C Ab Nonreactive Nonreactive Comment:Antibodies to HCV no t detected. Does NOT exclude the possibility of recent exposure to HCV. Current interpretive data was last revised on 22 Blood 11/23/2024 10:0 4 AM CDT 11/23/2024 10:37 AM CDT us Sharon Stewart TAX EXAMINER LAB MICROBIOLOGY - GENERAL OR DERABLES Final Result [facility] [place] [address] * (ABNORMAL) Comprehensive metabolic panel (11/23/2024 10:04 AM CDT) Sodium 145 135 - 145 mmol/L Potassium, pl 4.0 3.3 - 4.9 mmol/L [facility] Chloride 106 97 - 110 mmol/L [facility] CO2 28 22 - 32 mmol/L [facility] Anion gap 11 2 - 15 mmol/L [facility] BUN 10 6 - 25 mg/dL [facility] Creatinine 0.71 0.60 - 1.10 mg/dL [facility] Glucose 85 70 - 199 mg/dL [facility] Comment: Interpretive Data Fasting glucose >/= 126 [...] 2022. Calcium 10.0 8.5 - 10.3 mg/dL [facility] Bilirubin, total 0.5 0.1 - 1.2 mg/dL [facility] Protein, pl 7.7 6.5 - 8.5 g/dL [facility] Albumin 4.6 3.5 - 5.0 g/dL [facility] Alk phos 82 40 - 130 Units/L [facility] ALT 55(H) 7 - 45 Units/L [facility] AST 64(H) 10 - 45 Units/L [facility] Blood 11/23/2024 10:0 4 AM CDT 11/23/2024 10:37 AM CDT us Sharon Stewart NP LAB BLOOD ORDERABLES Final Re sult [facility] [place] [address] * POCT glucose (11/23/2024 8:32 AM CDT) Glucose Blood, POC 93 Normal Fasting 70 - 100, Random <200 mg/dL Blood 11/23/2024 8:32 AM CDT Sharon Stewart TAX EXAMINER POINT OF CARE TEST ORDERABLES Final Result * POCT lipid panel (11/23/2024 8:32 AM CDT) Cholesterol, POC 240 <200 MG/DL HDL, POC 100 >=40 mg/dL Triglycerides, POC 45 <=149 mg/dL Capillary blood 11/23/2024 8 :32 AM CDT Sharon Stewart TAX EXAMINER POINT OF CARE TEST ORDERABLES Final Result * COLONOSCOPY REPORT (08/19/2014) Anatomical Region Laterality Modality Other Narrative 08/19/2014 Ordered by an unspecified provider. Historical Provider GI PROCEDURE ORDERABLES F inal Result from Last 3 Months or Most Recently Relevant to Health Maintenance Insurance [facility] H[facility]/PPO Address: [facility] [address] [place] [address] [facility]/PPO Address: [address] [place] [address] [facility]/PPO Address: [address] [place] [address] [facility] H[facility]/PPO Address: [address] [place] [address] Advance Directives For more information, please contact: [phone] Documents on File Type Date Recorded 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
--- OUTSIDE RECORDS SUMMARY | 2025-01-21 19:34 | XMS_ITS | Clinical Summary ---
Author Organization [facility] [employer] Address [address] [place] [address] Care Team Providers Care Dobby Looms Pegger Name Role Phone Unavailable Primary Care Provider Unavailabl e Source Comments [facility] [employer],non-owned Affiliates and Associated Physician Practices is amultiple site organization consisting of ambulatory clinics and hospital sitesin [place], [place] and [place]. This disclosure is being madepursuant to the Care Everywhere program and may not contain all information available regarding this patient. Last updated 18.[facility] Allergies No known active allergies Medications * [...]
--- OUTSIDE RECORDS SUMMARY | 2025-01-21 19:34 | XMS_ITS | Clinical Summary ---
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 Assessment & Plan (02/09/2024 9:47 AM CDT): Not v/s, monitor Arthralgia of shoulder 04/30/2012 Encounters Date Type Department Care Team Description 12/28/2024 Results Follow-Up [facility] [address] [place] [address] Sharon Stewart NP Screening Mammogram Bilateral W Rico W Implants 12/27/2024 1:26 PM CDT - 12/27/2024 11:59 PM CDT Hospital Encounter [place] [address] [facility] [address] [place] [address] [address] [place] [address] Encounter for osteoporosis screening in asymptomatic postmenopausal patient Discharge Disposition: Discharge to home or self care 12/27/2024 1:26 PM CDT - 12/27/2024 11:59 PM CDT Hospital Encounter [address] [facility] [address] [place] [address] [address] [place] [address] Encounter for screening mammogram for malignant neoplasm of breast Discharge Disposition: Discharge to home or self care 11/26/2024 Telephone [facility] [address] [place] [address] [facility] 12th [place] [address] [place] [phone] Cathy Prather 11/24/2024 Telephone [facility] [address] [place] [address] Brisa Lehman RN 11/23/2024 10:05 AM CDT Lab [facility] [address] [place] [phone] Routine general medical examination at a health care facility; Need for hepatitis B screening test; Encounter for hepatitis C screening test for low risk patient; Anxiety 11/23/2024 8:30 AM CDT Office Visit [facility] [address] [place] [address] [address] [facility] [place] [address] Sharon Stewart NP Routine general medical examination at a health care facility (Primary Dx); Screening for lipid disorders; Colon cancer screening; Encounter for screening mammogram for malignant neoplasm of breast; Anxiety; Need for hepatitis B screening test; Encounter for hepatitis C screening test for low risk patient; Encounter for osteoporosis screening in asymptomatic postmenopausal patient 11/23/2024 Results Follow-Up [facility] [address] [place] [phone] Sharon Stewart NP Hepatitis C antibody Blood, Urinalysis reflex to microscopic and culture Urine, Thyroid Function [place], Additional followed-up results: 5 from Last 3 Months Immunizations Immunization Administration Dates Next Due [employer] ([employer]) SARS-CoV-2 Vaccination 09/26/2020 Surgical History Surgery [...] on file 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 Gender Identity Not on file Sexual Orientation [...] CDT Screening for lipid disorders POCT GLUCOSE [id number] Routine 11/23/2024 8: 32 AM CDT Screening [...] 11/23/2024 10:43 AM CDT us Sharon Stewart BAGGAGE SMASHER LAB BLOOD ORDERABLES Final Re sult [facility] Department [place] [address] * Differential, auto (11/23/2024 10:04 AM CDT) Neutrophil abs 4.46 1.50 - 6.50 K/cumm Imm gran abs 0.02 0.00 - 0.10 K/cumm [facility] Lymphocyte abs 1.45 0.80 - 3.30 K/cumm [facility] Monocyte abs 0.41 0.20 - 0.80 K/cumm [facility] Eosinophil abs 0.17 0.00 - 0.50 K/cumm [facility] Basophil abs 0.07 0.00 - 0.10 K/cumm [facility] Neutrophil pct 67.8 % [facility] Comment: Interpretive Data Percent cell count reference ranges are not reported, since discordance with absolute values may lead to misinterpretation of CBC data. Current Interpretive Data was last revised on 2017. Imm gran pct 0.3 % [facility] Comment: Interpretive Data Percent cell count reference ranges are not reported, since discordance with absolute values may lead to misinterpretation of CBC data. Current Interpretive Data was last revised on 2017. Lymphocyte pct 22.0 % [facility] Comment: Interpretive Data Percent cell count reference ranges are not reported, since discordance with absolute values may lead to misinterpretation of CBC data. Current Interpretive Data was last revised on 2017. Monocyte pct 6.2 % [facility] Comment: Interpretive Data Percent cell count reference ranges are not reported, since discordance with absolute values may lead to misinterpretation of CBC data. Current Interpretive Data was last revised on 2017. Eosinophil pct 2.6 % [facility] Comment: Interpretive Data Percent cell count reference ranges are not reported, since discordance with absolute values may lead to misinterpretation of CBC data. Current Interpretive Data was last revised on 2017. Basophil pct 1.1 % [facility] Comment: Interpretive Data Percent cell count reference ranges are not reported, since discordance with absolute values may lead to misinterpretation of CBC data. Current Interpretive Data was last revised on 2017. Blood 11/23/2024 10:0 4 AM CDT 11/23/2024 10:37 AM CDT Sharon Stewart BAGGAGE SMASHER LAB BLOOD ORDERABLES Final Re sult Performing Organization Address City/[facility]/ZIP Co de Phone Number [facility] Department [place] [address] * Thyroid Function [place] (11/23/2024 10:04 AM CDT) TSH 1.97 0.30 - 4.20 mcIUnit/mL Blood 11/23/2024 10:0 4 AM CDT 11/23/2024 10:37 AM CDT Sharon Stewart BAGGAGE SMASHER LAB BLOOD ORDERABLES Final Re sult Performing Organization Address [facility] Co de Phone Number [facility] Department [place] [address] * Urinalysis reflex to microscopic and culture Urine (11/23/2024 10:04 AM CDT) Color, ur Yellow Yellow Clarity, ur Clear Clear [facility] Specific gravity, ur 1.024 1.003 - 1.030 [facility] pH, urine 6.0 [facility] Comment: Interpretive Data U rine pH is affected by diet, medications, systemic acid-base disturbances, and renal tubular function. pH may affect urinary stone formation. For example, urine pH below 6.0 may help reduce the tendency for calcium phosphate stones and pH greater than 6.0 may reduce the tendency for uric acid stone formation. Source: [facility] Current Interpretive Data was last revised on 2017 Protein, ur ql Trace Negative [facility] Glucose, ur ql Negative Negative [facility] Ketones, ur Negative Negative [facility] Bilirubin, ur Negative Negative [facility] Blood, ur Negative Negative [facility] Urobilinogen, ur <2.0 <2.0 mg/dL [facility] Nitrite, ur Negative Negative [facility] Leukocyte esterase, ur Negative Negative [facility] UA reflex comment Reflex conditions for microscopic UA and culture not met. [facility] Urine 11/23/2024 10:0 4 AM CDT 11/23/2024 10:37 AM CDT us Sharon Stewart NP LAB MICROBIOLOGY - GENERAL OR DERABLES Final Result [facility] Department [place] [address] * CBC with auto differential (11/23/2024 10:04 AM CDT) Pathologist [facility] WBC 6.58 3.80 - 9.90 K/cumm Hgb 14.8 11.9 - 15.5 g/dL [facility] Hct 43.7 35.6 - 45.5 % [facility] Plt 375 150 - 400 K/cumm [facility] MPV 11.0 9.1 - 12.3 fL [facility] RBC 4.61 3.90 - 5.20 M/cumm [facility] MCV 94.8 81.3 - 96.4 fL [facility] MCH 32.1 27.1 - 33.3 pg [facility] MCHC 33.9 32.3 - 35.7 g/dL [facility] RDW CV 13.8 11.1 - 14.9 % [facility] RDW SD 47.6 35.7 - 48.1 fL [facility] NRBC abs 0.00 0.00 - 0.01 K/cumm [facility] Blood 11/23/2024 10:0 4 AM CDT 11/23/2024 10:37 AM CDT Sharon Stewart BAGGAGE SMASHER LAB BLOOD ORDERABLES Final Re sult Performing Organization Address City/[facility]/ZIP Co de Phone Number [facility] Department [place] [address] * Hepatitis C antibody Blood (11/23/2024 10:04 AM CDT) [facility] Hep C Ab Nonreactive Nonreactive Comment:Antibodies to HCV no t detected. Does NOT exclude the possibility of recent exposure to HCV. Current interpretive data was last revised on 22 Blood 11/23/2024 10:0 4 AM CDT 11/23/2024 10:37 AM CDT us Sharon Stewart BAGGAGE SMASHER LAB MICROBIOLOGY - GENERAL OR DERABLES Final Result Performing Organization Address City/[facility] Co de Phone Number [facility] Department [place] [address] * (ABNORMAL) Comprehensive metabolic panel (11/23/2024 10:04 AM CDT) [facility] Sodium 145 135 - 145 mmol/L Potassium, pl 4.0 3.3 - 4.9 mmol/L [facility] Chloride 106 97 - 110 mmol/L [facility] CO2 28 22 - 32 mmol/L [facility] Anion gap 11 2 - 15 mmol/L [facility] BUN 10 6 - 25 mg/dL [facility] Creatinine 0.71 0.60 - 1.10 mg/dL [facility] Glucose 85 70 - 199 mg/dL [facility] Comment: Interpretive Data Fasting glucose [...] 2022. Calcium 10.0 8.5 - 10.3 mg/dL [facility] Bilirubin, total 0.5 0.1 - 1.2 mg/dL [facility] Protein, pl 7.7 6.5 - 8.5 g/dL [facility] Albumin 4.6 3.5 - 5.0 g/dL [facility] Alk phos 82 40 - 130 Units/L [facility] ALT 55(H) 7 - 45 Units/L [facility] AST 64(H) 10 - 45 Units/L [facility] Blood 11/23/2024 10:0 4 AM CDT 11/23/2024 10:37 AM CDT Sharon Stewart NP LAB BLOOD ORDERABLES Final Re sult [facility] Department [place] [address] * POCT glucose (11/23/2024 8:32 AM CDT) Glucose Blood, POC 93 Normal Fasting 70 - 100, Random <200 mg/dL Blood 11/23/2024 8:32 AM CDT Sharon Stewart BAGGAGE SMASHER POINT OF CARE TEST ORDERABLES Final Result [...] Most Recently Relevant to Health Maintenance Insurance [facility] CHOICE PLUS [facility] CHO[facility] PLUS [facility] CHOICE PLUS [facility] CHOICE PLUS Advance Directives For more information, please contact: [phone] Documents on File Type Date Recorded Patient Citizen Participation Specialist Expl anation Advance Directives and Livin g Will 09/10/2022 8:46 AM Care Teams Trolley Coach Driver Relationship Specialty Start Date End Date Torrey Serna MD PCP - General Internal Medicine 12/12/20
--- NOTE | 2025-01-21 19:36 | PC.NURSE ---
VORB to give patient 1mg dilaudid IM, and 4mg zofran PO. Orders placed per [facility]ORB.
[2025-01-21] MEDS: HYDROmorphone HCL INJ (*CRX) 2 MG/ML VIAL 1 MG IM (19:46)
[2025-01-21] MEDS: ONDANSETRON HCL ODT 4 MG TABLET PO (19:46)
[2025-01-21 20:54] VITALS: BP 138/68; PULSE 108; RESP 18; TEMP 36.7; O2SAT 94
== END 2025-01-21 20:59 | disposition home or self-care (01) ==
PROVIDERS: Emergency Provider Emergency Medicine; PCP Internal Medicine
DX: S42.302A Unspecified fracture of shaft of humerus, left arm, initial encounter for closed fracture (principal); W18.39XA Other fall on same level, initial encounter
CPT/HCPCS: 73030; 73060; 96372; 96374; 99284; A9270; J1171